=== PATIENT | female | born 1995 | race African-American/Black ===

== ENCOUNTER 2019-11-27 03:49 | Emergency (ER) | payer OTHER, SELFPAY ==
--- NOTE | ~2019-11-27 | XR_ITS ---
EXAMINATION: XR chest 2V DATE: 11/27/2019 04:19 INDICATION: Cough TECHNIQUE: PA and lateral views of the chest were obtained. COMPARISON: Chest radiograph date and CT dated 08/01/2016 FINDINGS: The lungs are clear with no focal airspace opacities, pulmonary edema, pleural effusion or pneumothor ax. The cardiomediastinal silhouette is normal. Visualized bones and soft tissues are unremarkable. IMPRESSION: 1. No acute cardiopulmonary disease. Reviewed, dictated and finalized at location A.
[2019-11-27 03:51] VITALS: BP 138/95; PULSE 73; RESP 16; TEMP 36.7; O2SAT 100
[2019-11-27 03:58] VITALS: PULSE 78
--- NOTE | 2019-11-27 03:58 | ED.SOB ---
HPI - SOB/Dyspnea General Chief Complaint: Shortness of Breath/Dyspnea Stated Complaint: weak, SOB, ST, cough, n/v, decreased appetite History of Present Illness HPI Narrative: COugh, congestion, sore throat for the past 2-3 days. Associated with dyspnea and decreased appetite. Vomiting began this morning. She works at a [employer] and is unsure if she has any sick contacts. No recent travel. Related Data Home Medications Medication Instructions Recorded Confirmed levonorgestrel 20.1 mcg/24 hrs (6 1 device I-UTERINE ONCE 09/20/19 yrs) 52 mg intrauterine device Allergies Allergy/AdvReac Type Severity Reaction Status Date / Time shellfish derived Allergy Mild Unknown Verified 10/18/19 13:06 banana Allergy Unknown THROAT Verified 10/18/19 13:06 SWELLING SEAFOOD Allergy Intermediate THROAT Uncoded 12/07/16 13:55 ITCHS Review of Systems Review of Systems: All systems reviewed & are unremarkable except as noted in HPI and below Constitutional: Constitutional: Reports fatigue and Denies fever(s) Eyes: Eyes: Denies change in vision ENT: Reports sore throat Cardiovascular: Cardiovascular: Denies chest pain Respiratory: Respiratory: Reports cough, Reports dyspnea and Denies wheezing Gastrointestinal: Gastrointestinal: Denies constipation, Denies diarrhea, Reports nausea and Reports vomiting Genitourinary: Genitourinary: Denies hematuria and Denies dysuria Musculoskeletal: Musculoskeletal: Reports myalgias Neurologic: Denies focal weakness [facility] Past Medical History Medical History Anemia Anxiety Sickle cell trait Surgical History Surgical History History of removal of cyst Previous section Family History Family History Other Family history of lupus erythematosus Family history of type 2 diabetes mellitus Social History Social History Smoking status: Never smoker Alcohol intake: current Gender identity (if verbalized by the patient): Female Exam Const: General: no acute distress and alert Orientation/consciousness: patient oriented x3 HENMT: Mouth: Yes moist mucous membranes and Yes Abnormal oral and palatal mucosa present Teeth and gingiva: dentition normal Other: mild pharyngeal erythema Neck: Neck: normal visual inspection and no lymphadenopathy Resp: Effort & Inspection: normal respiratory effort and tachypneic Auscultation: clear to auscultation bilaterally Cardio: Rate: regular rate Rhythm: regular rhythm GI: GI Palp: Yes Soft to palpation and No Tenderness to palpation present (GI) Neuro: General: patient oriented x3 and moves all extremities Speech: normal speech Course Vital Signs Vital signs: Vital Signs Temperature 36.7 C 11/27/19 03:51 Pulse Rate 73 11/27/19 03:51 Respiratory Rate 16 11/27/19 03:51 Blood Pressure 138/95 H 11/27/19 03:51 Pulse Oximetry 100 11/27/19 03:51 Temperature 36.7 C 11/27/19 03:51 Pulse Rate 68 11/27/19 04:54 Respiratory Rate 16 11/27/19 04:54 Blood Pressure 116/67 11/27/19 04:54 Pulse Oximetry 97 11/27/19 04:54 MDM - SOB/Dyspnea Differential Diagnosis Differential diagnosis: Likely community acquired pneumonia and other (influenza, bronchitis, viral syndrome) Medical Records Attestation: I reviewed the patient's medical records. Lab Data Attestation: I reviewed the patient's lab results. Result diagrams: 11/27/19 04:04 11/27/19 04:04 Labs: Lab Results 11/27/19 11/27/19 Range/Units 04:04 04:04 WBC 6.7 (4.5-10.0) K/mm3 RBC 4.72 (4.2-5.4) M/mm3 Hgb 12.9 (12.0-15.0) g/dL Hct 38.7 (37.0-47.0) % MCV 82.0 (80-100) fl MCH 27.3 (26-34) pg MCHC 33.3 (32-36) g/dl RDW 14.3 (11.5-14.5)
[2019-11-27] MEDS: SODIUM CHLORIDE 0.9% IV 1,000 ML 999 ML IV CONT (04:17)
[2019-11-27] MEDS: ONDANSETRON INJ 4 MG/2 ML VIAL IV PUSH (04:18)
[2019-11-27 04:19] LABS: Basophils Absolute Auto 0.1 K/mm3 (0.0-0.1); Basophils Percent Auto 0.7 % (0.2-1.2); Eosinophils Absolute Auto 0.2 K/mm3 (0-0.3); Hematocrit 38.7 % (37.0-47.0); Hemoglobin 12.9 g/dL (12.0-15.0); Immature Granulocyte Absolute 0.02 K/mm3 (0.00-0.031); Immature Granulocyte Percent A 0.3 % (0-0.5); Lymphocytes Absolute Auto 2.41 K/mm3 (0.9-3.2); Lymphocytes Percent Auto 36.1 % (18.3-44.2); Mean Corpuscular HGB Conc 33.3 g/dl (32-36); Mean Corpuscular Hemoglobin 27.3 pg (26-34); Mean Platelet Volume 11.1 fl (7.4-10.4); Monocytes Absolute Auto 0.5 K/mm3 (0.1-0.6); Neutrophils Absolute Auto 3.5 K/mm3 (1.3-6.7); Neutrophils Percent Auto 52.9 % (45.5-73.1); Platelet Count Result 399 k/mm3 (150-375); Red Blood Count 4.72 M/mm3 (4.2-5.4); Red Cell Distribution Width 14.3 % (11.5-14.5); White Blood Count 6.7 K/mm3 (4.5-10.0)
[2019-11-27] MEDS: KETOROLAC 30 MG/ML VIAL (*BKC) IV PUSH (04:19)
[2019-11-27 04:31] LABS: Blood Urea Nitrogen 3 mg/dL (7-17); Calcium 9.1 mg/dL (8.4-10.2); Carbon Dioxide 24 mmol/L (22-30); Chloride 109 mmol/L (98-107); Estimated CRCL calculation 129 ml/min; Estimated Glomerular Filt Rate > 60; Glucose 102 mg/dL (65-105); Potassium 3.3 mmol/L (3.4-5.0); Sodium 139 mmol/L (137-145)
[2019-11-27 04:54] VITALS: BP 116/67; PULSE 68; RESP 16; O2SAT 97
[2019-11-27 05:59] VITALS: BP 128/70; PULSE 70; RESP 16; TEMP 36.7; O2SAT 98
== END 2019-11-27 06:10 | disposition home or self-care (01) ==
PROVIDERS: Emergency Provider Emergency Medicine
DX: B34.9 Viral infection, unspecified (principal); D57.3 Sickle-cell trait
CPT/HCPCS: 36415; 71046; 80048; 85025; 87081; 87804; 87880; 96361; 96374; 96375; 99284; J1885; J2405; J7030

== ENCOUNTER 2020-03-13 08:55 | Emergency (ER) | payer OTHER, SELFPAY ==
--- NOTE | ~2020-03-13 | XR_ITS ---
XR chest 2V DATE: 03/13/2020 11:01 INDICATION: Shortness of breath TECHNIQUE: PA and lateral views COMPARISON: 11/27/2019 PA and lateral chest FINDINGS: Normal heart size. No hilar or mediastinal enlargement. No pulmonary infiltrate or consolid ation, pleural effusion or pulmonary vascular congestion or pneumothorax. IMPRESSION: No active cardiopulmonary disease Reviewed, dictated and finalized at location B.
--- NOTE | 2020-03-13 09:01 | PCCCNOTE ---
Per supervisor underwriting clerks request, provided Xarelto prescription assistance card to patient. Patient had many questions regarding her diagnosis. Answered with general information but advised patient to direct specific questions to her nurse or the ED physician.
[2020-03-13 09:02] VITALS: BP 131/86; PULSE 91; RESP 15; TEMP 36.3; O2SAT 99
--- NOTE | 2020-03-13 09:16 | PC.NURSE ---
rn at bedside, explained strep throat culture and process. pt verbalized understanding at this time.
--- NOTE | 2020-03-13 09:47 | PC.NURSE ---
rn at bedside for straight cath.
--- NOTE | 2020-03-13 10:40 | ED.URI ---
HPI - URI/Sore Throat General Chief Complaint: Upper Respiratory Infection <MORRO Valderrama Last Filed: 03/13/20 11:45> Stated Complaint: ST, GALICIA, BODY ACHES <MORRO Valderrama Last Filed: 03/13/20 11:45> Time Seen by Provider: 03/13/20 10:06 <MORRO Valderrama Last Filed: 03/13/20 11:45> Source: patient <MORRO Valderrama Last Filed: 03/13/20 11:45> Mode of arrival: ambulatory <MORRO Valderrama Last Filed: 03/13/20 11:45> Limitations: no limitations <MORRO Valderrama Last Filed: 03/13/20 11:45> History of Present Illness HPI Narrative: This is a 24-year-old female that presents to the emergency department for cold symptoms x1 week. Reports myalgias, sore throat, cough and congestion. Also reports some shortness of breath. Reports she works in a [employer]. Denies chest pain. <MORRO Valderrama Last Filed: 03/13/20 11:45> Related Data Home Medications: Home Medications Medication Instructions Recorded Confirmed levonorgestrel 20.1 mcg/24 hrs (6 1 device I-UTERINE ONCE 09/20/19 yrs) 52 mg intrauterine device <MORRO Valderrama Last Filed: 03/13/20 11:45> Allergies/Adverse Reactions: Allergies Allergy/AdvReac Type Severity Reaction Status Date / Time shellfish derived Allergy Mild Unknown Verified 03/13/20 09:08 banana Allergy Unknown THROAT Verified 03/13/20 09:08 SWELLING SEAFOOD Allergy Intermediate THROAT Uncoded 03/13/20 09:08 ITCHS <MORRO Valderrama Last Filed: 03/13/20 11:45> Review of Systems Review of Systems: Narrative: CONSTITUTIONAL: Denies fever ENT: Reports rhinorrhea, congestion, sore throat CARDIOVASCULAR: Denies chest pain RESPIRATORY: Reports cough and dyspnea. <MORRO Valderrama Last Filed: 03/13/20 11:45> All systems reviewed & are unremarkable except as noted in HPI and below <Meredith Varner PA-C - Last Filed: 03/13/20 11:45> PMFSH Social History Social History: Social History Smoking status: Never smoker Alcohol intake: current Gender identity (if verbalized by the patient): Female Sexual Orientation (if Verbalized by the Patient): Straight or Heterosexual <MORRO Valderrama Last Filed: 03/13/20 11:45> Exam Narrative: Exam Narrative: GENERAL: Well-appearing, well-nourished, and in no acute distress. HEAD: Normocephalic, atraumatic. EYES: EOMI. ENT: Nares clear, no rhinorrhea or epistaxis. Mucous membranes moist. Oropharynx with symmetric tonsillar hypertrophy, erythema and mild exudate; no other lesions. Uvula midline. Bilateral TMs pearly flynn non-bulging NECK: Supple. No adenopathy or masses. CHEST: Clear to auscultation. No respiratory distress. No wheezes rales or rhonchi HEART: Regular rate and rhythm. No murmur heard. Normal peripheral pulses. EXTREMITIES: Normal range of motion. No edema. SKIN: Warm, dry, no rash. NEURO: No focal deficits. Alert and oriented x3. PSYCH: Normal mood and affect <MORRO Valderrama Last Filed: 03/13/20 11:45> Course Vital Signs Vital signs: Vital Signs Temperature 36.3 C L 03/13/20 09:02 Pulse Rate 91 03/13/20 09:02 Respiratory Rate 15 03/13/20 09:02 Blood Pressure 131/86 03/13/20 09:02 Pulse Oximetry 99 03/13/20 09:02 Temperature 36.3 C L 03/13/20 09:02 Pulse Rate 73 03/13/20 10:58 Respiratory Rate 18 03/13/20 10:58 Blood Pressure 125/75 03/13/20 10:58 Pulse Oximetry 98 03/13/20 10:58 <MORRO Valderrama Last Filed: 03/13/20 11:45> Vital Signs Temperature 36.3 C L 03/13/20 09:02 Pulse Rate 91 03/13/20 09:02 Respiratory Rate 15 03/13/20 09:02 Blood Pressure 131/86 03/13/20 09:02 Pulse Oximetry 99 03/13/20 09:02 Temperature 36.3 C L 03/13/20 09:02 Pulse Rate 73 03/13/20 10:58 Respiratory Rate 18 03/13/20 10:58 Blood Pressure 1
[2020-03-13 10:46] LABS: Basophils Percent Auto 0.4 % (0.2-1.2); Eosinophils Absolute Auto 0.3 K/mm3 (0-0.3); Eosinophils Percent Auto 3.6 % (0-4.4); Hemoglobin 12.8 g/dL (12.0-15.0); Immature Granulocyte Absolute 0.03 K/mm3 (0.00-0.031); Immature Granulocyte Percent A 0.3 % (0-0.5); Lymphocytes Absolute Auto 1.24 K/mm3 (0.9-3.2); Lymphocytes Percent Auto 13.8 % (18.3-44.2); Mean Corpuscular HGB Conc 33.7 g/dl (32-36); Mean Corpuscular Volume 83.2 fl (80-100); Mean Platelet Volume 11.1 fl (7.4-10.4); Monocytes Absolute Auto 0.6 K/mm3 (0.1-0.6); Monocytes Percent Auto 6.3 % (2.6-8.5); Neutrophils Absolute Auto 6.8 K/mm3 (1.3-6.7); Neutrophils Percent Auto 75.6 % (45.5-73.1); Platelet Count Result 320 k/mm3 (150-375); Red Blood Count 4.57 M/mm3 (4.2-5.4); Red Cell Distribution Width 14.5 % (11.5-14.5)
[2020-03-13 10:58] VITALS: BP 125/75; PULSE 73; RESP 18; O2SAT 98
[2020-03-13 10:59] LABS: Monoscreen Negative (Negative); Negative Monotest Control Negative (Negative); Positive Monotest Control Positive (Positive)
[2020-03-13 11:04] LABS: Alanine Aminotransferase 13 U/L (4-35); Albumin Level 4.2 g/dL (3.5-5.1); Alkaline Phosphatase 82 U/L (38-126); Aspartate Amino Transferase 17 U/L (14-36); Bilirubin,Total 0.3 mg/dL (0.2-1.3); Blood Urea Nitrogen 4 mg/dL (7-17); CRP 1.9 mg/dL (<1.0); Calcium 8.6 mg/dL (8.4-10.2); Carbon Dioxide 25 mmol/L (22-30); Chloride 109 mmol/L (98-107); Estimated CRCL calculation 123 ml/min; Estimated Glomerular Filt Rate > 60; Glucose 101 mg/dL (65-105); Lactate Dehydrogenase 379 U/L (313-618); Potassium 4.2 mmol/L (3.4-5.0); Sodium 139 mmol/L (137-145)
--- NOTE | 2020-03-13 11:07 | PC.NURSE ---
rn report given to Paige
[2020-03-13 23:23] LABS: SARS-CoV-2 RNA PCR Negative
== END 2020-03-13 12:17 | disposition home or self-care (01) ==
PROVIDERS: Physician Assistant; Emergency Provider Emergency Medicine
DX: B34.9 Viral infection, unspecified (principal); Z20.828 Contact with and (suspected) exposure to other viral communicable diseases
CPT/HCPCS: 36415; 71046; 80053; 81025; 83615; 85025; 86140; 86308; 87081; 87635; 87880; 99283; C9803; U0003

== ENCOUNTER 2020-03-15 12:31 | Emergency (ER) | payer OTHER, SELFPAY ==
[2020-03-15 12:43] VITALS: BP 115/81; PULSE 79; RESP 18; TEMP 36.2; O2SAT 100
--- NOTE | 2020-03-15 12:56 | ED.SKABFB ---
HPI - Skin/Abscess/Foreign Bdy General Chief complaint: Skin/Abscess/Foreign Body Stated complaint: bumps on hands/arms Time Seen by Provider: 03/15/20 12:57 Source: patient and RN notes reviewed Mode of arrival: ambulatory Limitations: no limitations History of Present Illness HPI narrative: 24-year-old female presents with concern for an itchy rash on bilateral hands. She also reports itching without rash on her arm, behind her neck. Reports she is 5 days into a course of penicillin for sore throat. Reports she is never taken penicillin before reports she works in a [employer], however has not had any known exposure to scabies, but is worried the rash could be scabies. She denies any difficulty breathing, difficulty swallowing, swollen lips, swollen tongue, nausea, vomiting, diarrhea, fever. MD complaint: rash Related Data Home Medications Medication Instructions Recorded Confirmed levonorgestrel 20.1 mcg/24 hrs (6 1 device I-UTERINE ONCE 09/20/19 03/15/20 yrs) 52 mg intrauterine device Allergies Allergy/AdvReac Type Severity Reaction Status Date / Time shellfish derived Allergy Mild Unknown Verified 03/15/20 12:44 banana Allergy Unknown THROAT Verified 03/15/20 12:44 SWELLING Penicillins Allergy Rash Verified 03/15/20 13:04 SEAFOOD Allergy Intermediate THROAT Uncoded 03/13/20 09:08 ITCHS Review of Systems Review of Systems: Narrative: CONSTITUTIONAL: Denies malaise, chills, sweats, or fever. EYES: Denies visual changes, redness, or discharge. ENT: Denies rhinorrhea, congestion, sinus pain, otalgia or sore throat. CARDIOVASCULAR: Denies chest pain, palpitations, or edema. RESPIRATORY: Denies cough or dyspnea. GASTROINTESTINAL: Denies abdominal pain, nausea, vomiting SKIN: Reports itchy rash on bilateral hands. Reports itching without rash on the back of her neck, upper arms MUSCULOSKELETAL: Denies myalgia. NEUROLOGIC: Denies numbness, weakness, or headache. All systems reviewed & are unremarkable except as noted in HPI and below PMFSH Social History Social History Smoking status: Never smoker Alcohol intake: current Gender identity (if verbalized by the patient): Female Comments At time of signature, agree with nursing past medical, surgical, social and family history. There is no relevant family history pertinent to the presenting complaint Exam Narrative: Exam Narrative: GENERAL: Well-appearing, well-nourished, and in no acute distress. HEAD: Normocephalic EYES: PERRLA, conjunctivae clear ENT: Nares clear. Mucous membranes moist. Oropharynx without edema, erythema or lesions. NECK: Supple. CHEST: No respiratory distress. Speaks in full sentences. HEART: Regular rate and rhythm. SKIN: Warm, dry. Fine papular rash noted to bilateral fingers, no tracking, no other rash noted. NEURO: Alert and oriented x3. PSYCH: Normal mood and affect Course Course Emergency Course: Patient is aware of diagnosis, understands and agrees to treatment plan. Anticipatory guidance given. Patient agrees to follow-up as directed and is aware of reasons to seek care at the emergency department. Portions of this record may have been created with voice recognition software Vital Signs Vital signs: Vital Signs Temperature 97.1 F L 03/15/20 12:43 Pulse Rate 79 03/15/20 12:43 Respiratory Rate 18 03/15/20 12:43 Blood Pressure 115/81 03/15/20 12:43 Pulse Oximetry 100 03/15/20 12:43 Temperature 97.1 F L 03/15/20 12:43 Pulse Rate 79 03/15/20 12:43 Respiratory Rate 18 03/15/20 12:43 Blood Pressure 115/81 03/15/20 12:43 Pulse Oximetry 100 03/15/20 12:43 Reviewed. MDM - Skin/Abscess/Foreign Bdy MDM Narrative Medical decision making narrative: Does not appear at this time to be erythema multiforme, bullous, SJS, TEN; no evidence at this time to suggest RMSF, endocarditis or Lyme disease; patient looks well, nontoxic
== END 2020-03-15 13:13 | disposition home or self-care (01) ==
PROVIDERS: Emergency Provider Nurse Practitioner
DX: L27.0 Generalized skin eruption due to drugs and medicaments taken internally (principal); T36.0X5A Adverse effect of penicillins, initial encounter; J45.909 Unspecified asthma, uncomplicated; D57.1 Sickle-cell disease without crisis
CPT/HCPCS: 99213; G0463

== ENCOUNTER 2021-04-09 10:24 | Emergency (ER) | payer OTHER, SELFPAY ==
[2021-04-09 10:34] VITALS: BP 119/75; PULSE 76; RESP 18; TEMP 36.4; O2SAT 100
--- NOTE | 2021-04-09 10:47 | ED.PREGNANCY ---
HPI - General Chief complaint: Vaginal Bleeding Stated complaint: Abd pain Source: patient and RN notes reviewed Mode of arrival: ambulatory History of Present Illness HPI Narrative: This is a 25-year-old female who presented to urgent care with complaints of vaginal bleeding and cramping. Patient was recently informed she was approximately 1 week ago. She believes that she is threatening a miscarriage she did attempt to call her [employer] but was unable to get an appointment. Patient informed to notify her [employer] he once again for further instructions. She was informed to stay on bedrest until she notified her primary care physician from our facility. The patient denies SOB, CP, palpitation, extremity numbness, lightheadedness, dizziness, constipation, diarrhea, chills, or fever. MD Complaint: vaginal bleeding Related Data Home Medications Medication Instructions Recorded Confirmed sertraline 25 mg PO DAILY 04/09/21 04/09/21 Allergies Allergy/AdvReac Type Severity Reaction Status Date / Time shellfish derived Allergy Mild Unknown Verified 04/09/21 10:40 banana Allergy Unknown THROAT Verified 04/09/21 10:40 SWELLING Penicillins Allergy Rash Verified 04/09/21 10:40 SEAFOOD Allergy Intermediate THROAT Uncoded 04/09/21 10:40 ITCHS Review of Systems Review of Systems: A 14 organ system Review of Systems was performed and pertinent positives included in the HPI, otherwise remaining ROS is negative. [facility] Past Medical History Medical History (Updated 04/09/21 @ 10:46 by SONAL Brown) Anemia Anxiety Sickle cell trait Surgical History Surgical History History of removal of cyst Previous section Family History Family History (Updated 04/09/21 @ 10:49 by SONAL Brown) Other Family history non-contributory Family history of lupus erythematosus Family history of type 2 diabetes mellitus Social History Social History Smoking status: Never smoker Alcohol intake: current Gender identity (if verbalized by the patient): Female Exam Narrative: GENERAL: This is a well-nourished, well-developed patient, in no apparent distress. HEAD: normocephalic, atraumatic. EYES: PERRL. Sclera clear/white. Vision is grossly intact. EARS: External ears normal, auditory canals clear and without drainage, TMs normal without perforation. Hearing grossly intact. NOSE: External nose normal with no obvious nasal discharge, nares without redness, no rhinorrhea. THROAT: Mucous membranes moist, posterior pharynx clear. NECK: Neck supple, non-tender without lymphadenopathy, masses or thyromegaly. CARDIOVASCULAR: Regular rate and rhythm without murmurs, gallops, or rubs. RESPIRATORY: Clear to auscultation. Breath sounds equal bilaterally. No wheezes, rales, or rhonchi. GASTROINTESTINAL: Abdomen soft, non-tender, nondistended. Bowel sounds are active. No hepato-splenomegaly, or palpable masses. No guarding. SKIN: warm, intact with no suspicious lesions or rash, good texture and turgor. NEURO: awake, alert, and oriented to person, place and time. There were no obvious focal neurologic abnormalities. Steady gait EXTREMITIES: Normal range of motion. No edema. No calf tenderness. Negative Homans sign bilaterally. BACK: Nontender without deformity or crepitance. No flank tenderness. Course Course Emergency Course: Patient declines to go to the ED. She was instructed to call her primary care physician and to remain off her feet Vital Signs Vital signs: Vital Signs Temperature 97.5 F L 04/09/21 10:34 Pulse Rate 76 04/09/21 10:34 Respiratory Rate 18 04/09/21 10:34 Blood Pressure 119/75 04/09/21 10:34 Pulse Oximetry 100 04/09/21 10:34 Temperature 97.5 F L 04/09/21 10:34 Pulse Rate 76 04/09/21 10:34 Respiratory Rate 18 04/09/21 10:34 Bloo
== END 2021-04-09 10:48 | disposition home or self-care (01) ==
PROVIDERS: Emergency Provider Nurse Practitioner
DX: O20.0 Threatened abortion (principal); Z3A.00 Weeks of gestation of pregnancy not specified; O99.340 Other mental disorders complicating pregnancy, unspecified trimester; F41.9 Anxiety disorder, unspecified; O99.019 Anemia complicating pregnancy, unspecified trimester; D57.3 Sickle-cell trait
CPT/HCPCS: 99211; G0463

== ENCOUNTER 2021-06-03 09:16 | Emergency (ER) | payer OTHER, SELFPAY ==
--- NOTE | ~2021-06-03 | XR_ITS ---
XR knee RT min 4V DATE: 06/03/2021 09:38 INDICATION: Fall, right knee injury, pain TECHNIQUE: 4 views including crosstable lateral COMPARISON: None FINDINGS: No fracture or dislocation or joint effusion. Joint spaces are preserved. No periosteal marifer ction or bone destruction. No radiopaque intra-articular loose body or chondrocalcinosis. IMPRESSION: Negative Reviewed, dictated and finalized at location B. IMPRESSION: Negative
[2021-06-03 09:22] VITALS: BP 140/87; PULSE 120; RESP 20; TEMP 36.6; O2SAT 98
--- NOTE | 2021-06-03 10:06 | ED.LOWEXIN ---
HPI - Extremity Injury (Lower) General Chief Complaint: Extremity Injury, Lower Stated Complaint: leg injury Time Seen by Provider: 06/03/21 09:26 Source: patient Mode of arrival: wheelchair Limitations: no limitations History of Present Illness HPI Narrative: This is a 26 year old female that presents to the ER for right knee injury sustained just prior to arrival. Reports she slipped and fell down a hill on grass. Reports pain to the right knee. Does report she hit her head, but denies loss of consciousness. Reports she has been unable to bear weight on the leg since. Reports decreased ROM due to pain. Denies vision changes, vomiting, numbness or weakness. Related Data Home Medications Medication Instructions Recorded Confirmed sertraline 25 mg PO DAILY 04/09/21 04/09/21 Allergies Allergy/AdvReac Type Severity Reaction Status Date / Time shellfish derived Allergy Mild Unknown Verified 06/03/21 09:27 banana Allergy Unknown THROAT Verified 06/03/21 09:27 SWELLING Penicillins Allergy Rash Verified 06/03/21 09:27 SEAFOOD Allergy Intermediate THROAT Uncoded 04/09/21 10:40 ITCHS Review of Systems Review of Systems: CONSTITUTIONAL: Denies fever EYES: Denies visual changes GASTROINTESTINAL: Denies vomiting MUSCULOSKELETAL: Reports joint pain, and myalgia. NEUROLOGIC: Denies numbness, or weakness. All systems reviewed & are unremarkable except as noted in HPI and below PMFSH Past Medical History Medical History (Updated 06/03/21 @ 10:38 by Meredith Varner PA-C) Anemia Anxiety Sickle cell trait Surgical History Surgical History History of removal of cyst Previous section Family History Family History (Updated 04/09/21 @ 10:49 by SONAL Brown) Other Family history non-contributory Family history of lupus erythematosus Family history of type 2 diabetes mellitus Social History Social History Smoking status: Never smoker Alcohol intake: current Gender identity (if verbalized by the patient): Female Sexual Orientation (if Verbalized by the Patient): Straight or Heterosexual Exam Narrative: GENERAL: Well-appearing, well-nourished, and in no acute distress. HEAD: Normocephalic, atraumatic. EYES: PERRLA and EOMI. ENT: Nares clear, no rhinorrhea or epistaxis. Mucous membranes moist. Oropharynx without tonsillar hypertrophy exudate or other lesions. Bilateral TMs pearly flynn non-bulging NECK: Supple. No adenopathy or masses. CHEST: Clear to auscultation. No respiratory distress. No wheezes rales or rhonchi HEART: Regular rate and rhythm. No murmur heard. Normal peripheral pulses. EXTREMITIES: Normal range of motion, except decreased active ROM in the right knee due to pain. No edema or obvious deformity. Normal DP pulses. Normal sensation SKIN: Warm, dry, no rash. NEURO: No focal deficits. Alert and oriented x3. CN II-XII grossly intact PSYCH: Normal mood and affect Course Vital Signs Vital signs: Vital Signs Temperature 98 F 06/03/21 09:22 Pulse Rate 120 H 06/03/21 09:22 Respiratory Rate 20 06/03/21 09:22 Blood Pressure 140/87 06/03/21 09:22 Pulse Oximetry 98 06/03/21 09:22 Temperature 98 F 06/03/21 09:22 Pulse Rate 120 H 06/03/21 09:22 Respiratory Rate 20 06/03/21 09:22 Blood Pressure 140/87 06/03/21 09:22 Pulse Oximetry 98 06/03/21 09:22 MDM - Extremity Injury (Lower) MDM Narrative Medical decision making narrative: Patient presents to the emergency department for right knee injury sustained just prior to arrival. Patient slipped and fell. Does report hitting her head, but denies loss of consciousness. She is neurologically intact. Right knee x-rays without acute osseous abnormalities. Patient placed in a knee immobilizer and given crutches. Instructed on care of knee sprain. She is to follow-up with orthop
[2021-06-03] MEDS: HYDROcodone/acetaminophen (*CRX) 5-325 MG TABLET 1 TAB PO (10:11)
== END 2021-06-03 10:48 | disposition home or self-care (01) ==
PROVIDERS: Emergency Provider Emergency Medicine; PCP Emergency Medicine
DX: S83.91XA Sprain of unspecified site of right knee, initial encounter (principal); F41.9 Anxiety disorder, unspecified; D57.1 Sickle-cell disease without crisis; W17.81XA Fall down embankment (hill), initial encounter
CPT/HCPCS: 73564; 99283; A9270

== ENCOUNTER 2021-06-17 10:56 | Outpatient (CLI) | payer OTHER, SELFPAY ==
--- NOTE | ~2021-06-17 | MR_ITS ---
EXAMINATION: MR knee RT wo con DATE: 06/17/2021 12:02 INDICATION: Right knee pain. TECHNIQUE: Magnetic resonance imaging (MRI) of the right knee was performed without intravenous contr ast. Sequences included axial PD-weighted FS FSE, coronal PD-weighted FSE and PD-weighted FS FSE, sag ittal PD-weighted FSE, and sagittal T2-weighted FS FSE. COMPARISON: Right knee radiographs 06/03/2021 FINDINGS: Medial compartment: Medial meniscus is normal. Medial compartment cartilage is normal. There is bone marrow edema in post erior aspect of tibial condyle, consistent with contusion. Lateral compartment: There is a bucket-handle tear of lateral meniscus with anteriorly flipped fragment. Lateral compartme nt cartilage is normal. There is bone marrow edema at the notch of femoral condyle and posterior aspe ct of tibial condyle, consistent with contusions. Patellofemoral compartment: Patellar cartilage is normal. Trochlear cartilage is normal. Ligaments and tendons: There is a complete tear of anterior cruciate ligament. Posterior cruciate ligament is intact. There is a complete tear of medial collateral ligament distally. There is a partial tear of fibular collate ral ligament. There is mild patellar tendinopathy. Fluid: There is a large knee joint effusion. There is a small Hensley's cyst. There is subcutaneous edema abou t the knee. IMPRESSION: 1. Complete tear of anterior cruciate ligament. 2. Bucket-handle tear of lateral meniscus with an anteriorly flipped fragment. 3. Complete tear of medial collateral ligament. Partial tear of fibular collateral ligament. 4. Large knee joint effusion. 5. Small Hensley's cyst. Reviewed, dictated and finalized at location A. IMPRESSION: 1. Complete tear of anterior cruciate ligament. 2. Bucket-handle tear of lateral meniscus with an anteriorly flipped fragment. 3. Complete tear of medial collateral ligament. Partial tear of fibular collate ral ligament. 4. Large knee joint effusion. 5. Small Hensley's cyst.
== END 2021-06-17 10:57 | disposition home or self-care (01) ==
LOC: ANHIMG 11:04
PROVIDERS: PCP Emergency Medicine; Visit Provider Orthopaedic Surgery
DX: S83.91XA Sprain of unspecified site of right knee, initial encounter (principal); S83.251A Bucket-handle tear of lateral meniscus, current injury, right knee, initial encounter; S83.241A Other tear of medial meniscus, current injury, right knee, initial encounter; M71.22 Synovial cyst of popliteal space [Baker], left knee
CPT/HCPCS: 73721

== ENCOUNTER 2021-09-30 14:49 | Emergency (ER) | payer OTHER, SELFPAY ==
[2021-09-30 14:55] VITALS: BP 130/80; PULSE 90; RESP 18; TEMP 36.6; O2SAT 100
--- NOTE | 2021-09-30 15:02 | ECG_ITS ---
Measurements Intervals [place] Rate: 72 P: 56 KS: 135 QRS: 26 QRSD: 86 T: 21 QT: 370 QTc: 405 Interpretive Statements SINUS RHYTHM EARLY PRECORDIAL R/S TRANSITION MINIMAL Q WAVES- HIGH LATERAL LEADS BORDERLINE ECG Electronically Signed On 09-30-2021 15:44:56 [employer] by Nitesh Ponce D.O.
[2021-09-30 18:13] LABS: Basophils Percent Auto 0.5 % (0.2-1.2); Eosinophils Absolute Auto 0.1 K/mm3 (0-0.3); Eosinophils Percent Auto 1.6 % (0-4.4); Hematocrit 31.8 % (37.0-47.0); Hemoglobin 10.8 g/dL (12.0-15.0); Immature Granulocyte Absolute 0.02 K/mm3 (0.00-0.031); Immature Granulocyte Percent A 0.4 % (0-0.5); Lymphocytes Absolute Auto 2.18 K/mm3 (0.9-3.2); Lymphocytes Percent Auto 39.9 % (18.3-44.2); Mean Corpuscular Hemoglobin 26.8 pg (26-34); Mean Corpuscular Volume 78.9 fl (80-100); Mean Platelet Volume 11.1 fl (7.4-10.4); Monocytes Absolute Auto 0.4 K/mm3 (0.1-0.6); Monocytes Percent Auto 7.3 % (2.6-8.5); Neutrophils Absolute Auto 2.8 K/mm3 (1.3-6.7); Neutrophils Percent Auto 50.3 % (45.5-73.1); Platelet Count Result 302 k/mm3 (150-375); Red Blood Count 4.03 M/mm3 (4.2-5.4); Red Cell Distribution Width 15.9 % (11.5-14.5); White Blood Count 5.5 K/mm3 (4.5-10.0)
[2021-09-30 18:27] LABS: Alanine Aminotransferase 14 U/L (4-35); Albumin Level 4.2 g/dL (3.5-5.1); Alkaline Phosphatase 82 U/L (38-126); Anion Gap 8 mmol/L (8-16); Aspartate Amino Transferase 19 U/L (14-36); Bilirubin,Total 0.3 mg/dL (0.2-1.3); Blood Urea Nitrogen 2 mg/dL (7-17); Calcium 8.9 mg/dL (8.4-10.2); Carbon Dioxide 22 mmol/L (22-30); Chloride 110 mmol/L (98-107); Estimated CRCL calculation 121 ml/min; Estimated Glomerular Filt Rate > 60; Glucose 93 mg/dL (65-110); Lipase 69 U/L (23-300); Potassium 3.9 mmol/L (3.4-5.0); Sodium 140 mmol/L (137-145)
[2021-09-30] MEDS: SODIUM CHLORIDE 0.9% IV 1,000 ML 150 ML IV CONT (18:33)
[2021-09-30] MEDS: ONDANSETRON INJ 4 MG/2 ML VIAL IV PUSH (18:33)
--- NOTE | 2021-09-30 19:20 | ED.NAVMDI ---
HPI - Nausea/Vomiting/Diarrhea General Chief complaint: Nausea/Vomiting/Diarrhea Stated complaint: multiple complaints Time Seen by Provider: 09/30/21 17:51 Source: patient Mode of arrival: ambulatory Limitations: no limitations History of Present Illness HPI Narrative: 26-year-old otherwise healthy here with complaints of intermittent chest pain for past few months since this morning yesterday she started having nausea, vomiting and diarrhea. She was at physical therapy had several episodes of nausea and vomiting patient was later referred to the ER. She presently denies having any chest pain. No history of cough or shortness of breath. Patient is getting physical therapy for her right knee. She states that she had surgery few weeks ago in [place]. elicited complaint: nausea and vomiting Onset (ago): day(s) (1) Description of vomiting: watery Associated nausea: Yes Associated abdominal pain: Yes Location of pain: suprapubic Pain consistency: constant Severity: mild Related Data Home Medications Medication Instructions Recorded Confirmed sertraline 25 mg PO DAILY 04/09/21 06/24/21 Allergies Allergy/AdvReac Type Severity Reaction Status Date / Time shellfish derived Allergy Mild Unknown Verified 06/24/21 10:46 banana Allergy Unknown THROAT Verified 06/24/21 10:46 SWELLING Penicillins Allergy Rash Verified 06/24/21 10:46 SEAFOOD Allergy Intermediate THROAT Uncoded 06/24/21 10:46 ITCHS Review of Systems Review of Systems: All systems reviewed & are unremarkable except as noted in HPI and below Constitutional: Constitutional: Reports no additional constitutional complaints Eyes: Eyes: Reports no additional eye complaints ENT: Reports system reviewed and no additional complaints, except as documented Cardiovascular: Cardiovascular: Reports no additional cardiovascular complaints Respiratory: Respiratory: Reports no additional respiratory complaints Gastrointestinal: Gastrointestinal: Reports as per HPI Musculoskeletal: Musculoskeletal: Reports no additional musculoskeletal complaints Neurologic: Reports system reviewed and no additional complaints, except as documented [facility] Past Medical History Medical History Anemia Anxiety Sickle cell trait Surgical History Surgical History History of removal of cyst Previous section Family History Family History Other Family history non-contributory Family history of lupus erythematosus Family history of type 2 diabetes mellitus Social History Social History Smoking status: Never smoker Alcohol intake: current Gender identity (if verbalized by the patient): Female Sexual Orientation (if Verbalized by the Patient): Straight or Heterosexual Exam Narrative: GENERAL: Well-appearing, well-nourished, and in no acute distress. HEAD: Normocephalic, atraumatic. EYES: PERRLA and EOMI.. NECK: Supple. CHEST: Clear to auscultation. No respiratory distress. HEART: Regular rate and rhythm. No murmur heard. Normal peripheral pulses. ABDOMEN: Soft, nontender, nondistended, normal active bowel sounds. EXTREMITIES: Normal range of motion. No edema. Right knee in a brace SKIN: Warm, dry, no rash. NEURO: No focal deficits. Alert and oriented x3. PSYCH: Normal mood and affect. Course Course Emergency Course: Patient had no further episodes of nausea, vomiting or abdominal pain or chest pain while she was here in the ER. I have informed her about her lab, EKG. Advised to take Zofran as needed for nausea. Follow-up with her primary doctor. Vital Signs Vital signs: Vital Signs Temperature 36.6 C 09/30/21 14:55 Pulse Rate 90 09/30/21 14:55 Respiratory Rate 18 09/30/21 14:55 Blood Pressure 130/80 09/30/21 1
[2021-09-30 19:49] VITALS: BP 128/64; PULSE 80; RESP 16; O2SAT 99
--- NOTE | 2021-10-17 08:27 | PC.NURSE ---
LATE ENTRY This note is being entered to document information to the patient's record. The following information was omitted on [10/17/21], by [shy frye, stop time for normal saline 1948
== END 2021-09-30 19:56 | disposition home or self-care (01) ==
PROVIDERS: Emergency Provider Family Medicine; PCP Emergency Medicine
DX: R07.89 Other chest pain (principal); K52.9 Noninfective gastroenteritis and colitis, unspecified; D57.3 Sickle-cell trait; F41.9 Anxiety disorder, unspecified; D64.9 Anemia, unspecified; R94.31 Abnormal electrocardiogram [ECG] [EKG]
CPT/HCPCS: 36415; 80053; 81025; 83690; 85025; 93005; 96360; 96372; 99284; J2405; J7030

== ENCOUNTER 2023-05-15 12:34 | Emergency (ER) | payer OTHER, SELFPAY ==
[2023-05-15 12:45] VITALS: BP 144/80; PULSE 90; RESP 16; TEMP 36.5; O2SAT 99
--- NOTE | 2023-05-15 13:33 | ED.GENADULT ---
HPI - General Adult General Chief complaint: Unspecified Stated complaint: Stomach Problems, Chest Pain, Congestion Time Seen by Provider: 05/15/23 13:20 Source: patient and RN notes reviewed Mode of arrival: ambulatory Limitations: no limitations History of Present Illness HPI narrative: Patient presents today complaining of a 3 day history of congestion, body aches, headache, scratchy throat, nausea. She has been taking NyQuil for those symptoms. Believe she may have a cold. Denies shortness of breath. She took 3 COVID-19 test yesterday that were all negative. Patient is also complaining of abdominal pain since yesterday with 1 episode of vomiting this morning after eating. Denies any residual nausea. She currently rates her abdominal pain 06/14 and has tried no [id number] treatment for her discomfort prior to arrival. Related Data Allergies Allergy/AdvReac Type Severity Reaction Status Date / Time banana Allergy Severe THROAT Verified 05/15/23 13:00 SWELLING Penicillins Allergy Intermediate Rash Verified 05/15/23 13:00 shellfish derived Allergy Intermediate Itching Verified 05/15/23 13:00 SEAFOOD Allergy Intermediate THROAT Uncoded 05/15/23 13:00 ITCHS Review of Systems Review of Systems: CONSTITUTIONAL: Denies body aches, fever, chills, or sweats. EYES: Denies visual changes, redness, or discharge. ENT: Denies rhinorrhea, sore throat, or otalgia.+ congestion, scratchy throat CARDIOVASCULAR: Denies chest pain, palpitations, or edema. RESPIRATORY: Denies cough or dyspnea. GASTROINTESTINAL: Denies nausea, or diarrhea.+ abdominal pain, vomiting GENITOURINARY: Denies dysuria or hematuria. SKIN: Denies rash, itching, or wounds. MUSCULOSKELETAL: Denies back pain, joint pain, or myalgia. NEUROLOGIC: Denies numbness, tingling, or weakness.+ headache PSYCH: Denies depression or anxiety. [facility] Past Medical History Medical History (Updated 05/15/23 @ 13:42 by Kary Alvarez, BINTA, ) Anemia Anxiety Sickle cell trait Surgical History Surgical History History of removal of cyst Previous section Family History Family History Other Family history non-contributory Family history of lupus erythematosus Family history of type 2 diabetes mellitus Social History Social History Smoking status: Never smoker Alcohol intake: current Gender identity (if verbalized by the patient): Female Sexual Orientation (if Verbalized by the Patient): Straight or Heterosexual Comments At time of signature, I have reviewed and agree with nursing past medical, surgical, social and family history unless otherwise noted. Please see nursing chart for further information. There is no relevant family history pertinent to the presenting complaint Exam Narrative: GENERAL: Mildly ill-appearing, well-nourished, and in no acute distress. HEAD: Normocephalic, atraumatic. EYES: EOMI. No redness or drainage. Conjunctivae normal. ENT: Mucous membranes pink and moist. Nares congested. No rhinorrhea. TMs normal bilaterally. Throat normal. Uvula midline. NECK: Normal AROM. Supple. No lymphadenopathy. CHEST: No respiratory distress. Clear to auscultation. HEART: Regular rate and rhythm. No murmur appreciated. Normal peripheral pulses. ABDOMEN: Soft, nondistended, normal active bowel sounds.+ tenderness with rebound to the right upper quadrant and epigastrium. EXTREMITIES: Normal range of motion. No edema. SKIN: Warm, dry, no rash. Capillary refill normal. Normal skin turgor. NEURO: No focal deficits. Alert and oriented x3. Gait steady. PSYCH: Normal affect. No signs of depression or anxiety. Course Course Level of Care: Express Care Visit Vital Signs Vital signs: Vital Signs Temperature 97.7 F
== END 2023-05-15 13:40 | disposition short-term general hospital (02) ==
PROVIDERS: Emergency Provider Nurse Practitioner; PCP Emergency Medicine
DX: R10.821 Right upper quadrant rebound abdominal tenderness (principal)
CPT/HCPCS: 99212; G0463

== ENCOUNTER 2023-05-15 14:04 | Emergency (ER) | payer OTHER, SELFPAY ==
--- NOTE | ~2023-05-15 | CT_ITS ---
EXAMINATION: CT abdomen pelvis w con DATE: 05/15/2023 19:07 INDICATION: RUQ, (+) zamora TECHNIQUE: Computed tomography (CT) of the abdomen and pelvis was performed with 100 mL Omnipaque-350 intravenous contrast. Automated exposure control and iterative reconstruction technique were employe d. The dose-length product was 845.99 mGy-cm. COMPARISON: 06/10/2017. FINDINGS: Lower thorax: Unremarkable Liver: Small posterior right liver lobe hypodensity, too small to characterize but most likely repres ents a cyst. Biliary/Gallbladder: Gallbladder is normal. No bile duct dilation. Pancreas: No mass or duct dilation. Spleen: Normal. Adrenals:No mass. Kidneys: No suspicious mass, obstructing stone, or hydronephrosis. GI tract: No small or large bowel dilation. Normal appendix. Mesentery/Peritoneum: No ascites, mass, or free air. Retroperitoneum: No mass. Pelvis: Pelvic organs are within normal limits. Soft Tissues: Uncomplicated fat-containing ventral hernia Bones: No acute osseous finding. IMPRESSION: No acute abdominopelvic process detected. Reviewed, dictated and finalized at location K.
[2023-05-15 14:13] VITALS: BP 146/86; PULSE 88; RESP 20; TEMP 36.2; O2SAT 100
[2023-05-15 14:26] LABS: Basophils Absolute Auto 0.1 K/mm3 (0.0-0.1); Basophils Percent Auto 0.9 % (0.2-1.2); Eosinophils Absolute Auto 0.6 K/mm3 (0-0.3); Eosinophils Percent Auto 10.2 % (0-4.4); Hematocrit 36.9 % (37.0-47.0); Immature Granulocyte Absolute 0.01 K/mm3 (0.00-0.031); Immature Granulocyte Percent A 0.2 % (0-0.5); Lymphocytes Absolute Auto 2.14 K/mm3 (0.9-3.2); Lymphocytes Percent Auto 37.8 % (18.3-44.2); Mean Corpuscular HGB Conc 32.5 g/dl (32-36); Mean Corpuscular Hemoglobin 27.6 pg (26-34); Mean Platelet Volume 10.5 fl (7.4-10.4); Monocytes Absolute Auto 0.5 K/mm3 (0.1-0.6); Neutrophils Absolute Auto 2.4 K/mm3 (1.3-6.7); Neutrophils Percent Auto 42.9 % (45.5-73.1); Platelet Count Result 409 k/mm3 (150-375); Red Blood Count 4.34 M/mm3 (4.2-5.4); White Blood Count 5.7 K/mm3 (4.5-10.0)
[2023-05-15 14:37] LABS: Alanine Aminotransferase 20 U/L (6-35); Albumin Level 4.3 g/dL (3.5-5.1); Alkaline Phosphatase 66 U/L (38-126); Anion Gap 5 mmol/L (8-16); Aspartate Amino Transferase 21 U/L (14-36); Bilirubin,Total 0.4 mg/dL (0.2-1.3); Blood Urea Nitrogen 6 mg/dL (7-17); Calcium 8.6 mg/dL (8.4-10.2); Carbon Dioxide 27 mmol/L (22-30); Chloride 108 mmol/L (98-107); Estimated CRCL calculation 104 ml/min; Estimated Glomerular Filt Rate > 60; Glucose 72 mg/dL (65-110); Lipase 68 U/L (23-300); Potassium 4.1 mmol/L (3.4-5.0); Sodium 140 mmol/L (137-145)
[2023-05-15 14:42] LABS: Appearance Urine Clear (Clear); Bilirubin Urine Negative (Negative); Blood Urine Negative (Negative); Color Urine Yellow (Yellow); Glucose Urine UA Negative (Negative); Ketones Urine Negative (Negative); Leukocyte Esterase Ur Negative LEU/UL (Negative); Nitrate Urine Negative (Negative); Protein Urine Negative (Negative); Specific Grav Ur 1.015 (1.001-1.035); Urobilinogen Urine 0.2 mg/dL (<2.0); pH Urine 6.5 (5.0-9.0)
[2023-05-15 14:51] LABS: Add Urine Microscopic? NO
--- NOTE | 2023-05-15 17:28 | ED.GENADULT ---
HPI - General Adult General Chief complaint: Abdominal Pain Stated complaint: real bad abdominal pain Time Seen by Provider: 05/15/23 17:01 Source: patient Mode of arrival: ambulatory Limitations: no limitations History of Present Illness HPI narrative: This is a 28-year-old female with PMH of sickle cell who presents to the ED with chief complaint of upper abdominal pain ongoing for the past 3 to 4 days. Patient reports that she has 8 out of 10 pain in the epigastrium and across the upper abdomen. Reports it feels like a cramping pain. Denies any further site of radiation. Reports that she has associated nausea and vomiting whenever she tries to eat. Also reports that she often has a sour/bitter taste in her mouth, worse in the mornings and at night. Endorses occasional loose stools. Denies fevers, chills, chest pain, shortness of breath, cough, urinary problems. Denies GI bleeding symptoms. Patient states that this does not feel at all like her sickle cell disease pain. Related Data Allergies Allergy/AdvReac Type Severity Reaction Status Date / Time banana Allergy Severe THROAT Verified 05/15/23 14:06 SWELLING Penicillins Allergy Intermediate Rash Verified 05/15/23 14:06 shellfish derived Allergy Intermediate Itching Verified 05/15/23 14:06 SEAFOOD Allergy Intermediate THROAT Uncoded 05/15/23 13:00 ITCHS Review of Systems Review of Systems: All systems as dictated in [facility] Past Medical History Medical History (Updated 05/16/23 @ 00:01 by Mckay Person) Anemia Anxiety Sickle cell trait Surgical History Surgical History History of removal of cyst Previous section Family History Family History Other Family history non-contributory Family history of lupus erythematosus Family history of type 2 diabetes mellitus Social History Social History Smoking status: Never smoker Alcohol intake: current Gender identity (if verbalized by the patient): Female Sexual Orientation (if Verbalized by the Patient): Straight or Heterosexual Exam Narrative: GENERAL: Well-appearing, well-nourished, and in no acute distress. HEAD: Normocephalic, atraumatic. EYES: PERRLA and EOMI. ENT: Nares clear, no rhinorrhea or epistaxis. Mucous membranes moist. Oropharynx without tonsillar hypertrophy exudate or other lesions. NECK: Supple. No adenopathy or masses. CHEST: No respiratory distress. Clear to auscultation. No wheezes rales or rhonchi HEART: Regular rate and rhythm. No murmur heard. Normal peripheral pulses. ABDOMEN: Epigastric tenderness present. Soft, nontender, nondistended, normal active bowel sounds. MSK: Normal range of motion. No edema. SKIN: Warm, dry, no rash. NEURO: Alert and oriented x3. No focal deficits. PSYCH: Normal mood and affect. Course Vital Signs Vital signs: Vital Signs Temperature 97.2 F L 05/15/23 14:13 Pulse Rate 88 05/15/23 14:13 Respiratory Rate 20 05/15/23 14:13 Blood Pressure 146/86 H 05/15/23 14:13 Pulse Oximetry 100 05/15/23 14:13 Temperature 97.2 F L 05/15/23 14:13 Pulse Rate 61 05/15/23 20:31 Respiratory Rate 14 05/15/23 20:31 Blood Pressure 138/84 05/15/23 20:31 Pulse Oximetry 100 05/15/23 20:31 Medical Decision Making [facility] Narrative Medical decision making narrative: This is a 28-year-old female who presents to the ED with chief complaint of epigastric and upper abdominal pain for the past 2 days. Occasional nausea and vomiting. Vitals are normal. Exam reveals epigastric tenderness. Right upper quadrant tenderness present as well. CBC CMP and UA are unremarkable. CT was ordered to rule out cholecystitis CT abdomen pelvis with IV contrast: No acute abdominopelvic process detected. Patient is feeling jensen
[2023-05-15] MEDS: ONDANSETRON INJ 4 MG/2 ML VIAL IV PUSH (18:46)
[2023-05-15] MEDS: HYDROmorphone HCL INJ (*CRX) 1 MG/ML SYR 0.5 MG IV PUSH (18:47)
[2023-05-15] MEDS: BELLADONNA ALK/PHENOB ELIX 10 ML, MAG HYDROX/ALUMINUM HYD/SIMETH 30 ML, LIDOCAINE HCL 2... PO (19:38)
[2023-05-15 20:31] VITALS: BP 138/84; PULSE 61; RESP 14; O2SAT 100
== END 2023-05-15 20:33 | disposition home or self-care (01) ==
PROVIDERS: Preventive Medicine Aerospace Medicine; Emergency Provider Physician Assistant; PCP Emergency Medicine
DX: K29.70 Gastritis, unspecified, without bleeding (principal); F41.9 Anxiety disorder, unspecified; D64.9 Anemia, unspecified
CPT/HCPCS: 36415; 74177; 80053; 81003; 81025; 83690; 85025; 96374; 96375; 99284; A9270; J1170; J2405; Q9967

== ENCOUNTER 2023-05-17 14:35 | Emergency (ER) | payer OTHER, SELFPAY ==
[2023-05-17 15:29] VITALS: BP 118/49; PULSE 83; RESP 18; TEMP 36.6; O2SAT 100
--- NOTE | 2023-05-17 18:09 | PC.NURSE ---
no answer for vital signs at 1800
--- NOTE | 2023-05-17 18:21 | PC.NURSE ---
no answer for vital signs at 1814
--- NOTE | 2023-05-17 18:29 | PC.NURSE ---
no answer for vital signs at this time. call number 3 no answer
== END 2023-05-17 18:36 | disposition left against medical advice (07) ==
LOC: ANHED 18:32
PROVIDERS: PCP Emergency Medicine
DX: R07.9 Chest pain, unspecified (principal)
CPT/HCPCS: 99199

== ENCOUNTER 2024-01-11 09:59 | Emergency (ER) | payer OTHER, SELFPAY ==
[2024-01-11] VITALS (13 sets, daily range): BP systolic 76–145; BP diastolic 53–97; PULSE 60–78; RESP 12–18; TEMP 36.6; O2SAT 97–100
--- NOTE | ~2024-01-11 | XR_ITS ---
EXAMINATION: XR chest 2V DATE: 01/11/2024 10:44 INDICATION: Central chest pain. TECHNIQUE: Frontal and lateral views of the chest were obtained. COMPARISON: Chest 2 views 03/13/2020 FINDINGS: There is no pneumonia, pleural effusion, or pneumothorax. The heart size is normal. IMPRESSION: 1. No acute cardiopulmonary disease. Reviewed, dictated and finalized at location A.
--- NOTE | ~2024-01-11 | US_ITS ---
EXAMINATION: US pelvic complete DATE: 01/11/2024 15:36 INDICATION: Left adnexal and lower pelvic pain TECHNIQUE: Multiple transabdominal sonographic images of the pelvis were obtained. COMPARISON: CT dated 05/15/2023 FINDINGS: The uterus measures 10.1 x 4.5 x 5.7 cm. The endometrial complex measures 10 mm in thickness. There is heterogeneous echogenicity with scattered hyperechoic foci with subtle shadowing in the myometrium at the uterine fundus. Appearance suggestive of diffuse adenomyosis. The right ovary measures 2.5 x 1.5 x 2.2 cm. The left ovary measures 3.4 x 1.8 x 2.5 cm. Vascular flow identified in both ovaries on color Doppler. There is no free fluid in the pelvis. IMPRESSION: 1. Heterogeneous myometrial echogenicity with multiple scattered small hyperechoic foci and subtle sh adowing suggestive but not definitive for diffuse adenomyosis. Reviewed, dictated and finalized at location A. IMPRESSION: 1. Heterogeneous myometrial echogenicity with multiple scattered small hyperech oic foci and subtle shadowing suggestive but not definitive for diffuse adenomy osis.
--- NOTE | 2024-01-11 10:05 | ECG_ITS ---
SEE SCANNED COPY FOR CONFIRMED REPORT MTDD
[2024-01-11 10:27] LABS: Basophils Percent Auto 0.7 % (0.2-1.2); Eosinophils Absolute Auto 0.1 K/mm3 (0-0.3); Eosinophils Percent Auto 1.8 % (0-4.4); Hematocrit 36.9 % (37.0-47.0); Hemoglobin 12.1 g/dL (12.0-15.0); Immature Granulocyte Absolute 0.01 K/mm3 (0.00-0.031); Immature Granulocyte Percent A 0.2 % (0-0.5); Lymphocytes Absolute Auto 1.63 K/mm3 (0.9-3.2); Lymphocytes Percent Auto 37.2 % (18.3-44.2); Mean Corpuscular HGB Conc 32.8 g/dl (32-36); Mean Corpuscular Hemoglobin 28.2 pg (26-34); Mean Platelet Volume 10.8 fl (7.4-10.4); Monocytes Absolute Auto 0.3 K/mm3 (0.1-0.6); Monocytes Percent Auto 6.8 % (2.6-8.5); Neutrophils Absolute Auto 2.3 K/mm3 (1.3-6.7); Neutrophils Percent Auto 53.3 % (45.5-73.1); Platelet Count Result 357 k/mm3 (150-375); Red Blood Count 4.29 M/mm3 (4.2-5.4); Red Cell Distribution Width 14.3 % (11.5-14.5); White Blood Count 4.4 K/mm3 (4.5-10.0)
[2024-01-11 10:35] LABS: Alanine Aminotransferase 13 U/L (6-35); Albumin Level 4.6 g/dL (3.5-5.1); Alkaline Phosphatase 73 U/L (38-126); Anion Gap 6 mmol/L (4-12); Aspartate Amino Transferase 16 U/L (14-36); Bilirubin,Total 0.5 mg/dL (0.2-1.3); Blood Urea Nitrogen 6 mg/dL (7-17); Calcium 9.4 mg/dL (8.4-10.2); Carbon Dioxide 20 mmol/L (22-30); Chloride 113 mmol/L (98-107); Estimated CRCL calculation 67 ml/min; Estimated Glomerular Filt Rate > 60; Glucose 84 mg/dL (65-110); Lipase 44 U/L (23-300); Potassium 4.2 mmol/L (3.4-5.0); Sodium 139 mmol/L (137-145)
[2024-01-11 10:37] LABS: Prothrombin Time 13.3 Seconds (11.1-14.7)
[2024-01-11 10:38] LABS: Partial Thromboplastin Time 29.7 Seconds (22.3-36.8)
[2024-01-11 10:46] LABS: Troponin I < 0.012 ng/mL (0.000-0.034)
--- NOTE | 2024-01-11 12:15 | ED.GENADULT ---
HPI - General Adult General Chief complaint: Shortness of Breath/Dyspnea Stated complaint: hurts to breath Time Seen by Provider: 01/11/24 12:02 History of Present Illness HPI narrative: Patient is a 28 year old female with history of sickle cell trait, ovarian cyst, with 2 prior miscarriages, currently on her menstrual cycle here with lower abdominal pain. She notes the lower abdominal pain began about a week and a half ago. She notes the pain was initially in her lower abdomen and now seems to involve her entire abdomen and over the last couple of days began having mid chest pain as well. Patient notes that she has had associated nausea and vomiting no fever. She denies vaginal discharge. She does note a cough started this morning. All of her symptoms began after a trip to [place] when she drank a decent amount. She does note a history of sickle cell trait, does get pain crises however denies this feeling similar to pain crises because she is having no extremity pain. Related Data Allergies Allergy/AdvReac Type Severity Reaction Status Date / Time banana Allergy Swelling Verified 01/11/24 11:06 of Lip/Tongue/Throat iohexol Allergy Unknown Verified 01/11/24 16:39 [From contrast - CT, X-RAY] Penicillins Allergy Swelling Verified 01/11/24 11:06 of Lip/Tongue/Throat shellfish derived Allergy Swelling Verified 01/11/24 16:39 of Lip/Tongue/Throat Review of Systems Review of Systems: All systems reviewed & are unremarkable except as noted in HPI and below Exam Narrative: GENERAL: Well-appearing, well-nourished, and in no acute distress. HEAD: Normocephalic, atraumatic. EYES: PERRLA and EOMI. ENT: Nares clear. Mucous membranes moist. NECK: Supple. CHEST: Clear to auscultation. No respiratory distress. HEART: Regular rate and rhythm. Normal peripheral pulses. ABDOMEN: Soft, diffuse tenderness, appears to be the worst in the suprapubic and LLQ. No guarding or rebound present. EXTREMITIES: Normal range of motion. No edema. SKIN: Warm, dry, no rash. NEURO: No focal deficits. Alert and oriented x3. PSYCH: Normal mood and affect. Course Course Emergency Course: Chart review performed. Patient here with chest pain and abdominal pain. Triage vitals grossly normal. Lab work from triage reviewed. CBC unremarkable. Normal renal function, normal LFTs. Troponin normal. Lipase normal. CXR negative. Patient seen evaluated, nontoxic appearing. She does have some left lower quadrant and suprapubic tenderness. Given history of prior ovarian cyst and progressive symptoms over the last 1 and half week will do transvaginal ultrasound to evaluate for possible ovarian pathology causing the pain. Should we not get any answers will reflux to additional imaging with CT abdomen pelvis if patient continues to be in pain. D-dimer negative, COVID, influenza, RSV negative. Repeat troponin negative. UA negative for UTI. Pelvic ultrasound shows heterogenous myometrial echogenicity with multiple scattered small hyperechoic foci and subtle shadowing suggestive of diffuse adenomyosis. Patient reevaluated, feeling about the same. Continues to be tender in the suprapubic and LLQ tenderness. Patient offered CT scan to evaluate for any additional ensure abdominal pathology, she declines at this time would prefer to follow-up with her OBGYN and primary care doctor should symptoms persist. She does note she has had a very heavy. As of recently and is not surprised that it could be somewhat related to her suspected fibroids on ultrasound. The results of pertinent diagnostic studies and exam findings were discussed. The patient?s provisional diagnosis and plan of care were discussed with the patient and present family. The patient and/or present family expressed understanding of the diagnosis and plan. The nurse was instructed to provide written instructions and appropriate follow-up information. The patient understands their nee
[2024-01-11] MEDS: LACTATED RINGERS 1,000 ML 999 ML IV CONT (12:30)
[2024-01-11] MEDS: ASPIRIN 81 MG CHEWABLE TABLET 324 MG PO (12:35)
[2024-01-11 12:46] LABS: D Dimer 0.48 ug/mL (<0.48)
[2024-01-11 13:20] LABS: Influenza A QL RT-PCR Negative (Negative); Influenza B QL RT-PCR Negative (Negative); RSV RNA, RT-PCR Negative (Negative); SARS-CoV-2 RNA PCR Negative (Negative)
[2024-01-11] MEDS: ONDANSETRON INJ 4 MG/2 ML VIAL IV PUSH (13:44)
[2024-01-11] MEDS: FAMOTIDINE 20 MG/2 ML VIAL 40 MG IV PUSH (13:45)
[2024-01-11] MEDS: MORPHINE SULFATE (*CRX) 4 MG/ML INJ IV PUSH (13:45)
[2024-01-11 13:59] LABS: Appearance Urine Clear (Clear); Bacteria Urine None Seen /hpf; Bilirubin Urine Negative (Negative); Blood Urine 3+ (Negative); Color Urine Yellow (Yellow); Glucose Urine UA Negative (Negative); Ketones Urine Negative (Negative); Leukocyte Esterase Ur Negative LEU/UL (Negative); Nitrate Urine Negative (Negative); Non Pathogenic Casts 0-2; Protein Urine Negative (Negative); RBC Urine 0-2 /hpf (0-2); Specific Grav Ur 1.009 (1.001-1.035); Squamous Epithelial Cell Urine Occasional /hpf (Few); Urobilinogen Urine 0.2 mg/dL (<2.0); WBC Urine 0-5 /hpf (0-3); pH Urine 7.5 (5.0-9.0)
[2024-01-11 14:01] LABS: Add Urine Microscopic? YES
--- NOTE | 2024-01-11 14:09 | ECG_ITS ---
SEE SCANNED COPY FOR CONFIRMED REPORT MTDD
[2024-01-11 14:39] LABS: Troponin I < 0.012 ng/mL (0.000-0.034)
== END 2024-01-11 17:15 | disposition home or self-care (01) ==
PROVIDERS: Emergency Medicine; Emergency Provider Student in an Organized Health Care Education/Training Program
DX: R10.30 Lower abdominal pain, unspecified (principal); D25.9 Leiomyoma of uterus, unspecified; Z20.822 Contact with and (suspected) exposure to COVID-19; D57.3 Sickle-cell trait; R00.1 Bradycardia, unspecified
CPT/HCPCS: 36415; 71046; 76856; 80053; 81001; 81025; 83690; 84484; 85025; 85380; 85610; 85730; 87637; 93005; 96361; 96374; 96375; 99284; A9270; J2270; J2405; J7120